=== PATIENT | female | born 2000 | race Caucasian/White ===

== ENCOUNTER 2024-07-24 09:17 | Emergency (ER) | payer OTHER, SELFPAY ==
--- NOTE | ~2024-07-24 | XR_ITS ---
EXAMINATION: XR chest 2V DATE: 07/24/2024 10:43 INDICATION: Cough. TECHNIQUE: Frontal and lateral views of the chest were obtained. COMPARISON: None. FINDINGS: There is no pneumonia, pleural effusion, or pneumothorax. The heart size is normal. IMPRESSION: 1. No acute cardiopulmonary disease. Reviewed, dictated and finalized at location A. RAL MACHINE OPERATOR
[2024-07-24 09:57] VITALS: O2SAT 99
[2024-07-24 11:13] VITALS: BP 120/83; PULSE 68; RESP 17; TEMP 36.7; O2SAT 99
[2024-07-24 11:17] LABS: Influenza A QL RT-PCR Negative (Negative); Influenza B QL RT-PCR Negative (Negative); RSV RNA, RT-PCR Negative (Negative); SARS-CoV-2 RNA PCR Negative (Negative)
--- NOTE | 2024-07-24 11:25 | ED.URI ---
HPI - URI/Sore Throat General Chief Complaint: Upper Respiratory Infection Stated Complaint: URI Time Seen by Provider: 07/24/24 10:35 Source: patient Mode of arrival: ambulatory Limitations: no limitations History of Present Illness HPI Narrative: Patient is a 24-year-old female who presents the ED with report of cough. Patient reports she has had a cough for the last 1-1.5 weeks. Has been seen by her primary care doctor in [facility]. Patient has history of asthma and has been using her inhaler and nebulizer at home, but reports intermittent shortness breath. Reports intermittent wheezing. States cough is now getting worse to the point she is having green production of sputum. Denies fevers. Denies lower extremity pain or swelling. Related Data Allergies Allergy/AdvReac Type Severity Reaction Status Date / Time Latex, Natural Rubber Allergy Hives Verified 07/24/24 09:59 Review of Systems Review of Systems: All systems reviewed & are unremarkable except as noted in HPI. All systems reviewed & are unremarkable except as noted in HPI and below Exam Narrative: GENERAL: mildly unwell appearing, morbidly obese with BMI of 47.3, non-toxic, in no acute distress. HEAD: Normocephalic, atraumatic. RESPIRATORY: Airway patent, respirations nonlabored. Clear to auscultation bilaterally, no rales, rhonchi, wheezing. no significant focal lung sounds. No tachypnea. Hoarse quality to voice. CARDIOVASCULAR: Regular rate and rhythm without murmurs, rubs, or gallops. MUSCULOSKELETAL: Moves all extremities. No gross deformities. SKIN: Warm, dry, normal color. NEURO: A&O X3. Speech clear. Cranial nerves II-XII grossly intact. Steady gait. No ataxic movements. PSYCHIATRIC: Appropriate mood and affect. Normal interaction. Course Vital Signs Vital signs: Vital Signs Pulse Oximetry 99 07/24/24 09:57 Oxygen Delivery Room Air 07/24/24 09:57 Temperature 98.1 F 07/24/24 11:13 Pulse Rate 82 07/24/24 11:41 Respiratory Rate 18 07/24/24 11:41 Blood Pressure 120/83 07/24/24 11:13 Pulse Oximetry 99 07/24/24 11:13 Oxygen Delivery Room Air 07/24/24 09:57 MDM - URI/Sore Throat MDM Narrative Medical decision making narrative: Patient presented to ED with URI symptoms times 1-1.5 weeks. Vital signs are stable upon arrival. Patient is afebrile. Oxygen stable on room air. History of asthma. Viral swabs are negative. Chest x-ray was clear. Patient was ambulated throughout the ED with no ambulatory hypoxia. Discussed likelihood of URI, management of such. Patient is PERC negative. Low suspicion for PE. No evidence of DVT on exam. However with symptoms worsening, production of green sputum, underlying history of asthma, will treat more aggressively with short course of steroids and antibiotics to cover for bacterial process. recommended that patient have close follow-up with PCP for further evaluation. She is in agreement with this plan. Given strict return precautions. Discharged in stable condition. Medical Records Attestation: I reviewed the patient's medical records. Lab Data Attestation: I reviewed the patient's lab results. Labs: Lab Results 07/24/24 Range/Units 10:37 Influenza A (RT-PCR) Negative (Negative) Influenza B (RT-PCR) Negative (Negative) RSV (RT-PCR) Negative (Negative) SARS-CoV-2 RNA (RT-PCR) Negative (Negative) Imaging Data Attestation: I personally reviewed and interpreted this imaging study as follows: Radiologist's impression: ITS Impressions Chest X-Ray 07/24/24 10:45 IMPRESSION: 1. No acute cardiopulmonary disease. Discharge Plan Discharge Clinical Impression: Upper respiratory infection Qualifiers: URI type: unspecified URI Qualified Code(s): J06.9 - Acute upper respiratory infection, unspecified Asthma exacerbation Qualifiers: Asthma severity: unspecified severity Asthma persistence: unspecified Qualified Code(s): J45.901 - Unspecified asthma with (acute) exacerbation Patient Disposition: Home, Self-Care Condition: Stable Instructions: Antibiotic Form, Asthma (ED), Upper Respiratory Infection (ED), Viral Syndrome (ED), Cold Symptoms (ED) Additional Instructions: Take steroids and antibiotics as prescribed. Finish both courses. Continue your inhaler/nebulizers at home. Continue Tessalon Perles as needed for cough. Utilize Tylenol and Ibuprofen for discomfort and/or fevers. Recommend [id number] cough and cold medicines for symptom relief, Delsym, Mucinex, DayQuil, NyQuil, Sudafed, Robitussin, TheraFlu. Follow with primary care doctor for further evaluation. Return to the ED if you experience chest pain, difficulty breathing, unable to keep down food or drink, severe pain, or any other symptoms of concern. Prescriptions: New prednisone 50 mg tablet 50 mg PO DAILY Qty: 5 0RF amoxicillin-pot clavulanate 875-125 mg tablet 1 tablet PO Q12H 7 Days Qty: 14 0RF doxycycline monohydrate 100 mg tablet 100 mg PO BID 7 Days Qty: 14 0RF Follow-up/Referrals: UNKNOWN,DOCTOR [Primary Care Provider] - Time of Disposition: 12:12
[2024-07-24] MEDS: methylPREDNISolone SOD SUCC 125 MG VIAL IM (11:32)
[2024-07-24 11:34] VITALS: PULSE 72; RESP 18
[2024-07-24] MEDS: IPRATROPIUM 0.5 MG/ALBUTEROL SULFATE 2.5 MG AMPUL.NEB 3 ML INHALATION (11:34)
[2024-07-24 11:41] VITALS: PULSE 82; RESP 18
[2024-07-24 12:22] VITALS: BP 128/77; PULSE 100; RESP 16; O2SAT 99
== END 2024-07-24 12:23 | disposition home or self-care (01) ==
PROVIDERS: Emergency Provider Physician Assistant
DX: J06.9 Acute upper respiratory infection, unspecified (principal); J45.901 Unspecified asthma with (acute) exacerbation; Z20.822 Contact with and (suspected) exposure to COVID-19
CPT/HCPCS: 71046; 87637; 94640; 96372; 99283; J2919

== ENCOUNTER 2024-08-29 11:31 | Emergency (ER) | payer OTHER, SELFPAY ==
[2024-08-29 11:46] VITALS: BP 123/79; PULSE 80; RESP 16; TEMP 36.9; O2SAT 100
--- NOTE | 2024-08-29 12:32 | ED.NAVMDI ---
HPI - Nausea/Vomiting/Diarrhea General Chief complaint: Nausea/Vomiting/Diarrhea Stated complaint: Nausea Time Seen by Provider: 08/29/24 12:20 Source: patient, RN notes reviewed and old records reviewed Mode of arrival: ambulatory Limitations: no limitations History of Present Illness HPI Narrative: 24 year old female presents to [facility] care with complaints of nausea since August 21 with intermittent episodes of vomiting and diarrhea. with last episode 2 days ago but nausea continues. Patient reports that she has taken some TUMS, Zofran, and has been drinking water and maintaining bland diet. Patient reports some dull generalized abdominal discomfort, denies any sharp pain in abdomen. Patient reports was on antibiotics in June for respiratory infection. MD elicited complaint: nausea, abdominal pain and other (intermittentvomiting and diarrhea last 2 days ago ) Onset (ago): day(s) (8 days) Description of vomiting: food contents Description of diarrhea: watery Associated nausea: Yes Associated abdominal pain: Yes Location of pain: diffuse Pain scale (0-10): 3 Quality: dull Treatment prior to arrival: other (Zofran OTC nausea med TUMS) Related Data Home Medications ?Medication ?Instructions ?Recorded ?Confirmed ?Last Taken ?Type albuterol sulfate 0.63 mg/3 mL mg 08/29/24 Unknown History solution for nebulization albuterol sulfate 90 mcg/actuation inhalation 08/29/24 Unknown History aerosol inhaler meclizine 25 mg tablet mg 08/29/24 Unknown History Allergies Allergy/AdvReac Type Severity Reaction Status Date / Time Latex, Natural Rubber Allergy Hives Verified 08/29/24 11:45 Review of Systems Review of Systems: CONSTITUTIONAL: Denies fever, chills, or sweats. EYES: Denies visual changes, redness, or discharge. ENT: Denies rhinorrhea, congestion, sore throat, or otalgia. CARDIOVASCULAR: Denies chest pain, palpitations, or edema. RESPIRATORY: Denies cough or dyspnea. GASTROINTESTINAL: reports some intermittent dull generalized abdominal pain,continued nausea, vomiting, and diarrhea episodic last 2 days ago GENITOURINARY: Denies dysuria or hematuria. SKIN: Denies rash or itching. MUSCULOSKELETAL: Denies back pain, joint pain, or myalgia. NEUROLOGIC: Denies headache, numbness, or weakness. PSYCHIATRIC: Denies anxiety or depression. All systems reviewed & are unremarkable except as noted in HPI and below PMFSH Past Medical History Medical History Hx of migraines Asthma Social History Social History (Updated 09/01/24 @ 12:42 by Jamila Reddy NP) Smoking status: Never smoker Alcohol intake: unknown Substance use: unknown Living arrangements: with family Gender identity (if verbalized by the patient): Female Comments At time of signature, agree with nursing past medical, surgical, social and family history. There is no relevant family history pertinent to the presenting complaint Exam Narrative: GENERAL: Well-appearing, well-nourished,obese and in no acute distress. HEAD: Normocephalic, atraumatic. EYES: PERRLA and EOMI. ENT: Nares clear, no rhinorrhea or epistaxis. Mucous membranes moist. NECK: Supple.no lymphadenopathy CHEST: Clear to auscultation. No respiratory distress. SAO2 100% on room air HEART: Regular rate and rhythm. No murmur heard. Normal peripheral pulses. ABDOMEN: Soft, nontender, to palpation, no McBurney point tenderness.nondistended, normal active bowel sounds. EXTREMITIES: Normal range of motion. No edema. SKIN: Warm, dry, no rash. NEURO: No focal deficits. Alert and oriented x3. Course Course Emergency Course: Patient is aware of diagnosis, understands and agrees to treatment plan.? Anticipatory guidance given.? Patient agrees to follow-up as directed and is aware of reasons to seek care at the emergency department. Portions of this record may have been created with voice recognition software Level of Care: Express Care Visit Vital Signs Vital signs: Vital Signs Temperature 36.9 C 08/29/24 11:46 Pulse Rate 80 08/29/24 11:46 Respiratory Rate 16 08/29/24 11:46 Blood Pressure 123/79 08/29/24 11:46 Pulse Oximetry 100 08/29/24 11:46 Temperature 36.9 C 08/29/24 11:46 Pulse Rate 80 08/29/24 11:46 Respiratory Rate 16 08/29/24 11:46 Blood Pressure 123/79 08/29/24 11:46 Pulse Oximetry 100 08/29/24 11:46 Reviewed MDM - Nausea/Vomiting/Diarrhea Differential Diagnosis Differential diagnosis: Likely traveler's diarrhea, gastroenteritis and other (nausea vomiting and diarrhea) Medical Records Attestation: I reviewed the patient's medical records. Lab Data Attestation: I reviewed the patient's lab results. Lab results narrative: urine dip negative for signs of infection no indication of dehydration Labs: Lab Results 08/29/24 Range/Units 12:37 POC Urine Color Yellow POC Urine Clarity Clear POC Urine pH 6.5 POC Ur Specif [place] 1.025 POC Urine Protein Negative (Negative) POC Ur Glucose (UA) Negative (Negative) POC Urine Ketones Negative (Negative) POC Urine Blood Negative (Negative) POC Urine Nitrite Negative (Negative) POC Urine Bilirubin Negative (Negative) POC Urine Urobilinogen 0.2 POC U Leukocyte Esteras Negative (Negative) Critical Care Time Critical Care Time Critical Care Time: No Discharge Plan Discharge Clinical Impression: Nausea, vomiting, and diarrhea Patient Disposition: Home, Self-Care Condition: Stable Instructions: Clear Liquid Diet (ED), Gastroenteritis (ED) Additional Instructions: Clear liquids for the next 8-10 hours, then advance to a bland diet as tolerated A bland diet can consist of--BRAT diet which is bananas, rice, applesauce, and toast Avoid fried, greasy, fatty, fried foods Avoid caffeine, nicotine, and alcohol Return to your regular diet in the next 3-4 days Medication as directed for nausea and vomiting Tylenol only for pain. Sometimes ibuprofen/Aleve can cause increased stomach upset Ooci-qnk-oqpusan Imodium if develop diarrhea Follow-up with her PCP if continued problems or uncontrolled pain If your symptoms persist, change or worsen significantly before you can contact your personal physician then please, without delay, go to the emergency department for further evaluation. Follow-up with PCP in 7-10 days or sooner if needed Patient Language: Turkish Prescriptions: New ondansetron 4 mg tablet,disintegrating 4 mg PO Q6H PRN (Reason: nausea and vomiting) Qty: 20 0RF No Action albuterol sulfate 0.63 mg/3 mL solution for nebulization meclizine 25 mg tablet albuterol sulfate 90 mcg/actuation HFA aerosol inhaler INHALATION prednisone 50 mg tablet 50 mg PO DAILY Qty: 5 0RF amoxicillin-pot clavulanate 875-125 mg tablet 1 tablet PO Q12H 7 Days Qty: 14 0RF doxycycline monohydrate 100 mg tablet 100 mg PO BID 7 Days Qty: 14 0RF Follow-up/Referrals: UNKNOWN,DOCTOR [Primary Care Provider] - Time of Disposition: 12:43 Quality [place] Coma Scale Eyes: Open Verbal: Oriented and Alert Motor: Follows Commands [place] Coma Total Score: 15
[2024-08-29 12:40] LABS: EDUAAPPEAR Clear; EDUABILI Negative (Negative); EDUABLOOD Negative (Negative); EDUACOLOR1 Yellow; EDUAGLUCOSE Negative (Negative); EDUAKETONE Negative (Negative); EDUALEUKO Negative (Negative); EDUANITRATE Negative (Negative); EDUAPH 6.5; EDUAPROTEIN Negative (Negative); EDUASPGRAVITY 1.025; EDUAUROBILI 0.2
== END 2024-08-29 12:55 | disposition home or self-care (01) ==
PROVIDERS: Emergency Provider Registered Nurse
DX: R11.2 Nausea with vomiting, unspecified (principal); R19.7 Diarrhea, unspecified; J45.909 Unspecified asthma, uncomplicated
CPT/HCPCS: 81003; 99213; G0463

== ENCOUNTER 2025-05-10 09:24 | Emergency (ER) | payer OTHER, SELFPAY ==
--- NOTE | 2025-05-10 09:39 | ED.URI ---
HPI - URI/Sore Throat General Chief Complaint: Upper Respiratory Infection Stated Complaint: STUFFY NOSE Time Seen by Provider: 05/10/25 09:50 Source: patient Mode of arrival: ambulatory Limitations: no limitations History of Present Illness HPI Narrative: Lenora is a 25-year-old female patient presenting to the clinic today with complaints of nasal congestion, ear pain, and a nonproductive cough. Reports symptoms started yesterday. Denies any fevers, chills, body aches. History of asthma. Has not taken any medications for her symptoms. Denies any chest pain or shortness of breath. Related Data Home Medications ?Medication ?Instructions ?Recorded ?Confirmed ?Last Taken ?Type albuterol sulfate 0.63 mg/3 mL mg 08/29/24 Unknown History solution for nebulization albuterol sulfate 90 mcg/actuation inhalation 08/29/24 Unknown History aerosol inhaler meclizine 25 mg tablet mg 08/29/24 Unknown History albuterol 90 mcg-budesonide 80 inh inhalation 05/10/25 Unknown History mcg/actuation HFA aerosol inhaler (Airsupra) Allergies Allergy/AdvReac Type Severity Reaction Status Date / Time Latex, Natural Rubber Allergy Hives Verified 05/10/25 09:44 Review of Systems Review of Systems: Pertinent positives per HPI. Patient denies any fever, chills, rash, headache, visual changes, dizziness, shortness of breath, chest pain, palpitations, nausea, vomiting, diarrhea, constipation, abdominal pain, or any urinary issues. PMFSH Past Medical History Medical History Hx of migraines Asthma Social History Social History Smoking status: Never smoker Alcohol intake: unknown Substance use: unknown Living arrangements: with family Gender identity (if verbalized by the patient): Female Comments At the time of my signature, I reviewed and agree with the nursing past medical, surgical, social, and family history. There is no relevant family history pertinent to the patient complaint. Exam Narrative: General: Well-developed, morbidly obese, in no apparent distress Head: Normocephalic, atraumatic Eyes: Pupils equally round and reactive to light bilaterally, EOM intact, sclera and conjunctive clear, no discharge, lids normal Ears: TMs intact and congested, ear canals clear, no drainage, grossly hearing normal. Nose: Nares patent, clear discharge, no inflammation, no sinus tenderness. Mouth: Oral pharynx without lesions or masses, good dentition, MMM. Neck: Supple, trachea midline, no enlargement of anterior or posterior cervical nodes, no thyroid masses or goiter palpable. Cardio: Regular rate and rhythm, s1 and s2 normal, no murmur appreciated. Resp: Clear to auscultation bilaterally, no rhonchi, rales, wheezing or rubs Course Course Emergency Course: Portions of this record may have been created with voice recognition software. Level of Care: Express Care Visit Vital Signs Vital signs: Vital Signs Temperature 36.6 C 05/10/25 09:42 Pulse Rate 88 05/10/25 09:42 Respiratory Rate 16 05/10/25 09:42 Blood Pressure 126/83 05/10/25 09:42 Pulse Oximetry 99 05/10/25 09:42 Temperature 36.6 C 05/10/25 09:42 Pulse Rate 88 05/10/25 09:42 Respiratory Rate 16 05/10/25 09:42 Blood Pressure 126/83 05/10/25 09:42 Pulse Oximetry 99 05/10/25 09:42 Vital signs reviewed MDM - URI/Sore Throat MDM Narrative Medical decision making narrative: At the time of visit patient is resting comfortably on the exam table. Patient appears to be nontoxic. Complaints of nasal congestion, ear pain, and a nonproductive cough. Reports symptoms started yesterday. Denies any fevers, chills, body aches. History of asthma. Has not taken any medications for her symptoms. Denies any chest pain or shortness of breath. Denies sore throat. On exam patient has bilateral ear congestion and clear nasal drainage. COVID testing was ordered. Labs: COVID testing was performed and negative in the clinic today. Plan: I suspect patient has URI. Supportive measures were discussed with the patient and they voiced understanding discharge instructions and agrees to treatment plan. Return precautions reviewed Differential Diagnosis Differential diagnosis: Likely upper respiratory infection, otitis media, sinusitis, viral infection, bronchitis, influenza, pharyngitis and other (COVID) Lab Data Labs: Lab Results 05/10/25 Range/Units 09:48 POC SARS CoV-2 Ag Negative (Negative) Discharge Plan Discharge Clinical Impression: Upper respiratory infection Qualifiers: URI type: unspecified URI Qualified Code(s): J06.9 - Acute upper respiratory infection, unspecified Patient Disposition: Home Condition: Stable Instructions: Antibiotic Form, Cold Symptoms (ED) Additional Instructions: COVID testing was negative in the clinic today. May continue DayQuil/NyQuil for cold/flu symptoms. Continue current medications as prescribed Increase fluids and stay well hydrated May take Tylenol or motrin as directed on bottle for pain/fever May use Flonase 1 spray in each nare daily May take OTC antihistamines such as Zyrtec or Claritin daily as directed on bottle May apply Vicks vapor rub to chest to open sinuses Sinus rinses for congestion Cepacol spray, cough drops, throat lozenges, warm tea with honey/lemon, gargle salt water to soothe throat BRAT diet for diarrhea Clear liquids x 24 hours then advance as tolerated for nausea/vomiting Go to the ED if you develop a worsening in your condition- high fever not controlled by Tylenol or Motrin, dehydration, weakness, lethargy, shortness of breath, or chest pain. Follow up with your PCP in 3-5 days if symptoms persist. Patient Language: Amharic Prescriptions: No Action albuterol sulfate 0.63 mg/3 mL solution for nebulization meclizine 25 mg tablet albuterol sulfate 90 mcg/actuation HFA aerosol inhaler INHALATION ondansetron 4 mg tablet,disintegrating 4 mg PO Q6H PRN (Reason: nausea and vomiting) Qty: 20 0RF Airsupra 90-80 mcg/actuation HFA aerosol inhaler INHALATION prednisone 50 mg tablet 50 mg PO DAILY Qty: 5 0RF amoxicillin-pot clavulanate 875-125 mg tablet 1 tablet PO Q12H 7 Days Qty: 14 0RF doxycycline monohydrate 100 mg tablet 100 mg PO BID 7 Days Qty: 14 0RF Follow-up/Referrals: Jose,MD Gonsalo [Primary Care Provider] Stand Alone Forms: Work/School Release IP Time of Disposition: 10:09 Quality NIHSS Nursing Documentation ED NIHSS nursing documentation: reviewed/agree
[2025-05-10 09:42] VITALS: BP 126/83; PULSE 88; RESP 16; TEMP 36.6; O2SAT 99
[2025-05-10 10:10] LABS: EDCOVIDSCREEN Negative (Negative)
== END 2025-05-10 10:14 | disposition home or self-care (01) ==
PROVIDERS: Emergency Provider Nurse Practitioner Family; PCP Internal Medicine
DX: J06.9 Acute upper respiratory infection, unspecified (principal); Z20.822 Contact with and (suspected) exposure to COVID-19; J45.909 Unspecified asthma, uncomplicated
CPT/HCPCS: 87426; 99212; G0463